=== PATIENT | female | born 1975 | race Caucasian/White ===

== ENCOUNTER → 2017-06-11 | Outpatient (CLI) | payer BC ==
[2005-01-22 07:30] VITALS: PULSE 82
== END ==
LOC: MC.RAD 13:37
DX: Z12.31 Encounter for screening mammogram for malignant neoplasm of breast (principal)

== ENCOUNTER → 2018-11-18 | Outpatient (CLI) | payer BC ==
[2005-01-22 07:30] VITALS: PULSE 82
== END ==
LOC: MC.RAD 11:17
DX: Z12.31 Encounter for screening mammogram for malignant neoplasm of breast (principal)

== ENCOUNTER → 2020-02-09 | Outpatient (CLI) | payer BC ==
[2005-01-22 07:30] VITALS: PULSE 82
== END ==
LOC: MC.RAD 14:32
DX: Z12.31 Encounter for screening mammogram for malignant neoplasm of breast (principal)

== ENCOUNTER → 2021-05-02 | Outpatient (CLI) | payer BC ==
[2005-01-22 07:30] VITALS: PULSE 82
== END ==
LOC: MC.RAD 11:18
DX: Z12.31 Encounter for screening mammogram for malignant neoplasm of breast (principal); N63.20 Unspecified lump in the left breast, unspecified quadrant

== ENCOUNTER → 2021-05-12 | Outpatient (CLI) | payer BC ==
[2005-01-22 07:30] VITALS: PULSE 82
== END ==
LOC: MC.RAD 05-08 07:00
DX: N60.02 Solitary cyst of left breast (principal)

== ENCOUNTER 2021-09-19 05:57 | Day surgery (SDC) | payer BC ==
[~2021-09-19] VITALS: Ht 154.9 cm; Wt 57.4 kg
[2021-09-19 06:14] VITALS: BP 132/86; PULSE 67; TEMP 98.1
[2021-09-19] MEDS ORDERED: DAYSEE PO (06:17)
[2021-09-19] MEDS ORDERED: MOBIC 7.5MG7.5 MG PO (06:18)
[2021-09-19 07:35] VITALS: BP 130/85; PULSE 60; TEMP 98
[2021-09-19 07:50] VITALS: BP 142/84; PULSE 54; TEMP 98
== END 2021-09-19 08:00 | disposition home or self-care (01) ==
LOC: SDCO 05:57
DX: Z12.11 Encounter for screening for malignant neoplasm of colon (principal)
CPT/HCPCS: J2704; J7030

== ENCOUNTER → 2023-07-09 | Outpatient (CLI) | payer OTHER ==
[2005-01-22 07:30] VITALS: BP 120/74; PULSE 82
[~2023-07-09] MED LIST: DAYSEE PO; MOBIC 7.5MG7.5 MG PO
== END ==
LOC: MC.RAD 12:13
DX: N64.89 Other specified disorders of breast (principal)